=== PATIENT | male | born 1975 | race Caucasian/White ===

== ENCOUNTER 2016-10-28 20:29 | Emergency (ER) | payer BC ==
[2016-10-28] MEDS ORDERED: ACETAMINOPHEN 325 MG TABLET PO ONE (21:00)
[2016-10-28] MEDS ORDERED: DOXYCYCLINE 100 MG CAPSULE PO ONE (21:09)
--- NOTE | 2016-10-28 21:16 | ER NURSING DOCUMENTATION ---
Nurse's Notes [facility] Name:Denton Emmanuel Age:41 yrs Sex:Male :1975 Arrival Date:10/28/2016 Time:20:29 Bed5 Private MD: Diagnosis:Tick Bite;Lyme Disease-: Ruleout Possible Lyme Disease Presentation: 10/28 20:40 Presenting complaint: Patient states: I got bit by a tick on Saturday and removed it mk2 but today I developed a ring around the area and I became nauseated with a headache." PT took ibuprofen at 1800 and QUIROZ was improved as reported by pt. Transition of care: Home. Care prior to arrival: Medication(s) given: Ibuprofen. 20:40 Acuity: JAYLA 4 mk2 20:40 Method Of Arrival: Private Vehicle mk2 Triage Assessment: 20:41 Bite description: bite sustained to umbilical area by a tick animal information: was mk2 sustained 4 days. General: Appears in no apparent distress, Behavior is cooperative, pleasant. Pain: Complains of pain in Headache painv 2/10. Neuro: No deficits noted. Level of Consciousness is awake, alert, Oriented to person, place, time, event. Cardiovascular: Reports Nausea fever. Respiratory: No deficits noted. Derm: Red elim ira, baseball size surrounding the bite area. 21:15 Bite description: animal information: vaccination(s) is not applicable. mk2 Historical: - Allergies: No known drug Allergies; - Home Meds: 1. None - PMHx: None; - PSHx: None; - Tetanus: < 10 years. - Ebola Screening: : Patient negative for fever greater than or equal to 101.5 degrees Fahrenheit, and additional compatible Ebola Virus Disease symptoms. Patient denies exposure to infectious person. Patient denies travel to an Ebola-affected area in the 21 days before illness onset. No symptoms or risks identified at this time. . - Immunization history: Flu Vaccine None. - Social history: Smoking status: Patient states was never smoker of tobacco. Patient uses alcohol occasionally. Patient/guardian denies using street drugs. Screenin:45 Infectious Disease Risk None. Abuse screen: Denies threats or abuse. Nutritional mk2 screening: No deficits noted. Assessment: 20:45 See Triage Assessment done by same RN. mk2 21:15 Derm: Skin is intact, Skin is pink, warm & dry. mk2 Vital Signs: 20:43 BP 134 / 76; Pulse 83; Resp 14; Temp 99.5; Pulse Ox 92% on R/A; Weight 74.84 kg; Height mk2 5 ft. 10 in. (177.80 cm); Pain 2/10; 20:43 Body Mass Index 23.67 (74.84 kg, 177.80 cm) mk2 Ponder Coma Score: 20:42 Eye Response: spontaneous(4). Verbal Response: oriented(5). Motor Response: obeys cd commands(6). Total: 15. ED Course: 20:31 Patient arrived in ED. em3 20:40 Juliet Lainez, RN is Primary Nurse. mk2 20:41 Triage completed. mk2 20:44 Philip Nagy MD is Attending Physician. cd 20:45 Arm band placed on Bed in low position Call Light in Reach Gowned HOB Elevated Side mk2 rails up x1. 20:57 Jason Claros MD is Referral Physician. cd 21:10 Labs drawn. (by ED staff). Sent per order to lab. rh 21:15 Valuables Remains with patient. mk2 Administered Medications: 20:46 CANCELLED (Physician Discretion): Solu-MEDROL 125 mg IVP once cd 20:47 CANCELLED (Physician Discretion): Benadryl 50 mg IVP once cd 20:47 CANCELLED (Physician Discretion): Pepcid 20 mg IVPB once cd 20:49 Not Given (Patient Refused): Tylenol 975 mg PO once mk2 21:00 CANCELLED (Duplicate Order): Doxycycline 100 mg PO once 2 21:00 Drug: Doxycycline 100 mg; Route: PO; mk2 21:00 Follow up: Response: No adverse reaction 2 Outcome: 20:59 Discharge ordered by . cd 21:14 Discharged to home ambulatory. mk2 21:14 Condition: good 21:14 Discharge instructions given to patient, Instructed on discharge instructions, follow up and referral plans. medication usage, Prescriptions given X 1. 21:16 Patient left the ED. mk2 Signatures: Philip Nagy MD MD cd Kruger, Meg, RN RN mk2 Santi Menjivar em3 Anamika Perez
--- NOTE | 2016-10-28 21:16 | ER PHYSICIAN DOCUMENTATION ---
Physician Documentation [facility] Name:Denton Emmanuel Age:41 yrs Sex:Male :1975 Arrival Date:10/28/2016 Time:20:29 Bed5 Private MD: Philip Corona Disposition: 10/28 20:55 Chart complete. cd Disposition: 10/28/16 20:59 Discharged to Home/Self Care. Impression: Tick Bite, Lyme Disease - : Ruleout Possible Lyme Disease. - Condition is Good. - Discharge Instructions: TICK BITE, Abx Tx, TICK FACTS. - Prescriptions for Doxycycline Hyclate 100 mg Oral - take 1 tablet by ORAL route every 12 hours for 2 weeks; 30 tablet. - Medical Reconciliation form form. - Follow up: Jason Claros MD; When: 4- 6 days; Reason: Recheck today's complaints, Continuance of care. - Problem is new. - Symptoms are unchanged. HPI: 20:35 This 41 yrs old Male presents to ER via Private Vehicle with complaints of cd Tick Bite. 20:35 The patient was bitten on the umbilical area, by tick from [place], outdoors. Onset: cd The symptom(s)/episode began/occurred acutely, 3 day(s) ago. Infection risk factors: Patient removed the tick today. He has developed a low grade fever and a [place] of erythema about the bite site. It is not a Bullseye. He also developed a headache, but no neck stiffness. He was mildly nauseated earlier. He took a Tylenol and his headache is now gone. Associated signs and symptoms: Pertinent positives: erythema at site, fever, Pertinent negatives: fluctuance, tenderness. Severity of symptoms: At their worst the symptoms were moderate, in the emergency department the symptoms have improved, moderately. Historical: - Allergies: No known drug Allergies; - Home Meds: 1. None - PMHx: None; - PSHx: None; - Tetanus: < 10 years. - Ebola Screening: : Patient negative for fever greater than or equal to 101.5 degrees Fahrenheit, and additional compatible Ebola Virus Disease symptoms. Patient denies exposure to infectious person. Patient denies travel to an Ebola-affected area in the 21 days before illness onset. No symptoms or risks identified at this time. . - Immunization history: Flu Vaccine None. - Social history: Smoking status: Patient states was never smoker of tobacco. Patient uses alcohol occasionally. Patient/guardian denies using street drugs. ROS: 20:42 Constitutional: Positive for fever, Negative for body aches, chills, malaise, poor PO cd intake. 20:42 Neck: Negative for pain with movement, pain at rest. 20:42 Abdomen/GI: Positive for nausea, Negative for abdominal pain, vomiting, diarrhea, anorexia. 20:42 Skin: Positive for cellulitis, erythema, of the umbilical area. 20:42 Neuro: Positive for headache, Negative for altered mental status. 20:42 All other systems are negative. Exam: 20:42 ENT: Nares patent. No nasal discharge, no septal abnormalities noted. Tympanic cd membranes are normal and external auditory canals are clear. Oropharynx with no redness, swelling, or masses, exudates, or evidence of obstruction, uvula midline. Mucous membranes moist. Neck: Trachea midline, no thyromegaly or masses palpated, and no cervical lymphadenopathy. Supple, full range of motion without nuchal rigidity, or vertebral point tenderness. No Meningismus. Chest/axilla: Normal chest wall appearance and motion. Nontender with no deformity. No lesions are appreciated. Cardiovascular: Regular rate and rhythm with a normal S1 and S2. No gallops, murmurs, or rubs. Normal PMI, no JVD. No pulse deficits. 20:42 Respiratory: Lungs have equal breath sounds bilaterally, clear to auscultation and cd percussion. No rales, rhonchi or wheezes noted. No increased work of breathing, no retractions or nasal flaring. Back: No spinal tenderness. No costovertebral tenderness. Full range of motion. 20:42 MS/ Extremity: Pulses equal, no cyanosis. Neurovascular intact. Full, normal range of motion. 20:42 Constitutional: The patient appears alert, awake, anxious, febrile. 20:42 Abdomen/GI: Inspection: 4 cm area of erythema about the tick bite wound. Mildly warm, tender with mild swelling, Bowel sounds: normal, Palpation: abdomen is soft and non-tender. 20:42 Skin: Appearance: normal except for affected area, cellulitis, that is mild, confluent, well demarcated, on the umbilical area. 20:42 Neuro: Exam negative for acute changes. Vital Signs: 20:43 BP 134 / 76; Pulse 83; Resp 14; Temp 99.5; Pulse Ox 92% on R/A; Weight 74.84 kg; Height mk2 5 ft. 10 in. (177.80 cm); Pain 2/10; 20:43 Body Mass Index 23.67 (74.84 kg, 177.80 cm) mk2 Maria Esther Coma Score: 20:42 Eye Response: spontaneous(4). Verbal Response: oriented(5). Motor Response: obeys cd commands(6). Total: 15. MDM: 20:32 Data interpreted: Pulse oximetry: on room air is 92 %. Interpretation: normal. cd 20:44 Patient medically screened. cd 20:50 Data reviewed: vital signs, nurses notes, old medical records, and as a result, I will cd discharge patient, administer antibiotics Doxycycline 100 mg by mouth every 12 hours for 14 days. 20:55 Counseling: I had a detailed discussion with the patient and/or guardian regarding: the cd historical points, exam findings, and any diagnostic results supporting the discharge/admit diagnosis, lab results, the need for outpatient follow up, for a recheck, with the patient's primary care provider, to return to the emergency department if symptoms worsen or persist or if there are any questions or concerns that arise at home. 10/30 17:04 Order name: LYME DISEASE SEROLOGY; Complete Time: 21:08 EDOK 10/30 21:08 Interpretation: Normal: Negative. cd Dispensed Medications: 20:46 CANCELLED (Physician Discretion): Solu-MEDROL 125 mg IVP once cd 20:47 CANCELLED (Physician Discretion): Benadryl 50 mg IVP once cd 20:47 CANCELLED (Physician Discretion): Pepcid 20 mg IVPB once cd 20:49 Not Given (Patient Refused): Tylenol 975 mg PO once mk2 21:00 CANCELLED (Duplicate Order): Doxycycline 100 mg PO once mk2 21:00 Drug: Doxycycline 100 mg; Route: PO; mk2 21:00 Follow up: Response: No adverse reaction mk2 Signatures: Philip Nagy MD MD cd Kruger, Meg RN RN mk2
== END 2016-10-28 21:16 | disposition home or self-care (01) ==
LOC: ER 20:29
DX: S30.861A Insect bite (nonvenomous) of abdominal wall, initial encounter (principal); L03.316 Cellulitis of umbilicus; R50.9 Fever, unspecified; R51 Headache; R11.0 Nausea
CPT/HCPCS: 86618; 99283